=== PATIENT | male | born 1985 | race Two or more races ===

== ENCOUNTER 2017-06-03 10:49 | Inpatient (IN) | payer OTHER ==
[~2017-06-03] VITALS: Ht 182.9 cm; Wt 129.3 kg
--- NOTE | 2017-06-03 11:00 | NUR ---
PATIENT TO ED DT EPIGASTRIC PAIN, 01/06, BURNING SINCE THIS MORNING, PATIENT ALSO REPORTED NAUSEA/ VOMITTING/ DIARHEA. ADMITTED DRINKING 3 BOTTLES OF BEER LAST NIGHT, DENIES DYSURIA NOR HEMATURIA. VSS,.
--- NOTE | 2017-06-03 11:23 | NUR ---
STEPHANIE TANNER AT BEDSIDE
[2017-06-03] MEDS ORDERED: KETOROLAC TROMETHAMINE INJ 30 MG/ML VIAL IM ONE (11:30)
[2017-06-03] MEDS ORDERED: IV NS 0.9% 1,000 ML BAG IV ONE ×2 (11:30→14:00)
[2017-06-03] MEDS ORDERED: ONDANSETRON HCL/PF 4 MG/2 ML VIAL IVP ONE (11:30)
[2017-06-03] MEDS ORDERED: KETOROLAC TROMETHAMINE INJ 30 MG/ML VIAL ONE (11:39)
[2017-06-03] MEDS ORDERED: ONDANSETRON HCL/PF 4 MG/2 ML VIAL ONE (11:39)
[2017-06-03 11:44] LABS: APPEARANCE,URINE Clear (CLEAR); BILIRUBIN,URINE Negative (NEGATIVE); BLOOD, URINE Trace-lysed Ery/uL (NEGATIVE); COLOR,URINE Yellow (YELLOW); KETONES,URINE >=160 (NEGATIVE); LEUKOCYTE ESTERASE ,URINE Negative (NEGATIVE); NITRITE, URINE Negative (NEGATIVE); PH,URINE 5.5 (5.0-8.0); PROTEIN,URINE 30 mg/dl (NEGATIVE); UGLUCOSE 500 MG/DL mg/dL (NEGATIVE); UROBILINOGEN,URINE 0.2 EU/dL (0.2)
[2017-06-03 11:51] LABS: BACTERIA,URINE None seen /HPF (None Seen); SQUAMOUS EPITHELIAL CELL,UR Few /HPF (None Seen); WBC,URINE 0-3 /HPF (0-3)
[2017-06-03 12:14] LABS: HEMATOCRIT 45 % (39-51); MEAN CORPUSCULAR HEMOGLOBIN 32 PG (26.0-33.0); MEAN CORPUSCULAR HGB CONC 38 g/dl (31.0-36.0); MEAN CORPUSCULAR VOLUME 86 fL (80-96); PLATELET COUNT (AUTO) 280 /CMM (150-450); RDW COEFFICIENT OF VARIATION 11.6 (11.5-15.0); RED BLOOD CELL COUNT(AUTO) 5.27 MIL/uL (4.5-6.0); WHITE BLOOD COUNT (AUTO) 11.2 K/uL (4.3-11.0)
[2017-06-03 12:17] LABS: ALBUMIN 3.3 g/dL (3.4-5.0); BILIRUBIN,TOTAL 1.4 mg/dL (0.2-1.0); CALCIUM, SERUM 8.1 mg/dL (8.5-10.1); POTASSIUM 4.1 mmol/L (3.5-5.1); TOTAL PROTEIN, SERUM 7.9 g/dL (6.4-8.2)
[2017-06-03 12:27] LABS: EOSINOPHILS % (AUTO) 0.7 % (0.0-6.0); LYMPHOCYTES % (AUTO) 10.3 % (20.0-44.0); MONOCYTES % (AUTO) 4.5 % (2.0-12.0); NEUTROPHILS % (AUTO) 84.5 % (43.0-81.0)
[2017-06-03 12:28] LABS: EOSINOPHILS # (AUTO) 0.1 /CMM (0.0-0.7); LYMPHOCYTES # (AUTO) 1.2 /CMM (0.8-4.8); MONOCYTES # (AUTO) 0.5 /CMM (0.1-1.30); NEUTROPHILS # (AUTO) 9.7 /CMM (1.8-8.9)
[2017-06-03 12:31] LABS: BILIRUBIN,DIRECT 0.1 mg/dL (0.0-0.2); CREATININE 0.7 mg/dL (0.6-1.3)
[2017-06-03] MEDS ORDERED: INSULIN REGULAR, HUMAN 100 UNIT/ML 10 ML VIAL IV ONE (14:00)
[2017-06-03] MEDS ORDERED: MORPHINE SULFATE INJ 4 MG/ML DISP.SYRIN ONE (14:00)
[2017-06-03] MEDS ORDERED: INSULIN REGULAR, HUMAN 100 UNIT/ML 10 ML VIAL ONE (14:01)
--- NOTE | 2017-06-03 14:08 | NUR ---
PT WAS TAKEN TO CT
[2017-06-03] MEDS ORDERED: MORPHINE SULFATE INJ 4 MG/ML DISP.SYRIN IV ONE (14:30)
[2017-06-03] MEDS ORDERED: POTASSIUM CHLORIDE 20 MEQ TAB.PRT.SR PO ONE ×2 (15:00→15:02)
[2017-06-03] MEDS ORDERED: POTASSIUM CL. PREMIX PERIPHER. 100 ML ONE (15:02)
[2017-06-03] MEDS: POTASSIUM CL. PREMIX PERIPHER. 50 ML IV SCH ×2 (15:09→15:55)
[2017-06-03 15:11] LABS: BAND % (MANUAL) 6 % (0.0-5.0); EOSINOPHILS % (MANUAL) 2 % (0-4); LYMPHOCYTES % (MANUAL) 14 % (16-48); MONOCYTES % (MANUAL) 6 % (0-11.0); NEUTROPHILS % (MANUAL) 72 (42-76)
[2017-06-03 15:26] LABS: ABG BASE EXCESS -5.7 mmol/L; ABG OXYGEN SATURATION 94.4 % (92.0-98.5); ABG PCO2 33.3 mmHg (35.0-45.0); ABG PH 7.364 (7.350-7.450); AaDO2 34.9 mmHg; COHb 1.1 % (0.5-1.5); MetHb 0.2 % (0.0-1.5); O2Hb 93.2 % (94.0-97.0); SITE, ABG Left Radial; VENT MODE, BG ROOM AIR
[2017-06-03 16:44] LABS: CALCIUM, SERUM 7.3 mg/dL (8.5-10.1); CREATININE 0.7 mg/dL (0.6-1.3); MAGNESIUM 1.6 mg/dL (1.8-2.4); PHOSPHORUS 3.2 mg/dL (2.5-4.9); POTASSIUM 4.4 mmol/L (3.5-5.1)
--- NOTE | 2017-06-03 17:12 | NUR ---
CALLED NURSING SUP. FOR TELE BED
[2017-06-03 18:20] VITALS: BP 150/90
--- NOTE | 2017-06-03 18:20 | NUR ---
RN ADMITTING NOTES: REC'D REPORT FROM CELIA HEATING PLANT SUPERINTENDENT. PT TRANSFERRED VIA WHEELCHAIR ACCOMPANIED BY HEATING PLANT SUPERINTENDENT & BAKELITE MOLDER. PT ADMITTED TO ROOM 119/2, MS STATUS PER MARCEL, TOOL MACHINE SHOP SUPERVISOR. ROUTINE ASSESSMENT DONE. PT IS A/OX 4, NOT IN ANY DISTRESS. PT IS AMBULATORY W/ STEADY GAIT. ON ROOM AIR, NOT SOB. HAS R AC G20, SL, FLUSHING WELL, NO S/SX OF INFECTION/INFILTRATION NOTED. SKIN IS INTACT. PT C/O ABDOMINAL PAIN, 11/06, + N/V. PRN MORPHINE & ZOFRAN GIVEN VIA IVP. MARCEL TOOL MACHINE SHOP SUPERVISOR AWARE OF ADMISSION. PER TOOL MACHINE SHOP SUPERVISOR KEEPT NPO FOR NOW, MAY HAVE ICE CHIPS. PT & FAMILY ORIENTED TO ROOM. CALL LIGHT KEPT W/IN REACH. PROVIDED COMFORT & SAFETY MEASURES. BED KEPT LOW & IN LOCKED POS. ENDORSED TO PM RN FOR JOHN.
--- NOTE | 2017-06-03 18:22 | NUR ---
PATIENT TRANSPORTED TO TELE. S
[2017-06-03] MEDS ORDERED: ACETAMINOPHEN 325 MG TABLET PO PRN (18:30)
[2017-06-03] MEDS ORDERED: MAG HYDROX/AL HYDROX/SIMETH 30 ML UDC PO PRN (18:30)
[2017-06-03] MEDS ORDERED: DEXTROSE 50%-WATER 50 ML DISP.SYRIN IV PRN (18:30)
[2017-06-03] MEDS: MORPHINE SULFATE INJ 4 MG/ML DISP.SYRIN IV PRN ×2 (18:52→23:51)
[2017-06-03] MEDS: ONDANSETRON HCL/PF 4 MG/2 ML VIAL IVP PRN (18:57)
[2017-06-03] MEDS: IV NS 0.9% 1,000 ML IV PRN (19:59)
[2017-06-03 20:00] VITALS: BP 145/88
--- NOTE | 2017-06-03 20:00 | NUR ---
RN INITIAL NOTES RECEIVED PT RESTING IN BED.FAMILY AT BED SIDE. PT A & OX4. DENIES PAIN AT THIS TIME. DENIES N&V. STARTED IV FLUID IN PTS R AC. PLAN OF CARE DISCUSSED WITH PT. BED IN LOW LOCKED POSITION AND CALL LIGHT WITHIN REACH. WILL CONT TO MONITOR.
[2017-06-03] MEDS: BLOOD SUGAR DIAGNOSTIC 1 EACH STRIP IN SCH (23:35)
[2017-06-03] MEDS: Magnesium 1GM/D5W 100ML PREMIX 100 ML IV SCH (23:41)
[2017-06-03] MEDS: ENOXAPARIN SODIUM 40 MG/0.4 ML DISP.SYRIN SQ SCH (23:42)
[2017-06-03] MEDS: INSULIN REGULAR, HUMAN 100 UNIT/ML 3 ML VIAL SQ PRN (23:46)
[2017-06-04] MEDS ORDERED: ATEN100T PO (00:42)
[2017-06-04] MEDS ORDERED: GEMF600T3 PO (00:42)
[2017-06-04] MEDS ORDERED: METF10002 PO (00:42)
[2017-06-04] MEDS ORDERED: ATOR10TA PO (00:42)
[2017-06-04] MEDS: Magnesium 1GM/D5W 100ML PREMIX 100 ML IV SCH (01:02)
[2017-06-04 04:00] VITALS: BP 129/89
[2017-06-04] MEDS: MORPHINE SULFATE INJ 4 MG/ML DISP.SYRIN IV PRN ×4 (05:50→21:26)
[2017-06-04] MEDS: BLOOD SUGAR DIAGNOSTIC 1 EACH STRIP IN SCH ×4 (05:50→21:25)
[2017-06-04] MEDS: ONDANSETRON HCL/PF 4 MG/2 ML VIAL IVP PRN ×3 (05:51→21:27)
[2017-06-04] MEDS: IV NS 0.9% 1,000 ML IV PRN ×2 (05:51→21:26)
--- NOTE | 2017-06-04 06:18 | NUR ---
RN INITIAL NOTES PT RESTING IN BED. PT A & OX4. C/O OF ABD PAIN 10/06, PAIN MEDS GIVEN. C/O OF N&V OVER NIGHT. IV FLUID IN R AC @ 150ML/HR. ALL NEEDS ATTENDED AND MEDS GIVEN. BED IN LOW LOCKED POSITION AND CALL LIGHT WITHIN REACH. WILL CONT TO MONITOR.
--- NOTE | 2017-06-04 06:27 | NUR ---
RN CLOSING NOTES PT RESTING IN BED. PT A & OX4. C/O OF ABD PAIN 10/06, PAIN MEDS GIVEN. C/O OF N&V OVER NIGHT. IV FLUID IN R AC @ 150ML/HR. ALL NEEDS ATTENDED AND MEDS GIVEN. BED IN LOW LOCKED POSITION AND CALL LIGHT WITHIN REACH. WILL ENDORSE TO AM RN.
[2017-06-04] MEDS: INSULIN REGULAR, HUMAN 100 UNIT/ML 3 ML VIAL SQ PRN ×3 (06:52→21:29)
[2017-06-04 07:16] LABS: EOSINOPHILS % (AUTO) 0.1 % (0.0-6.0); HEMATOCRIT 48 % (39-51); HEMOGLOBIN 16.5 g/dL (13.5-17.5); LYMPHOCYTES # (AUTO) 0.8 /CMM (0.8-4.8); LYMPHOCYTES % (AUTO) 9.1 % (20.0-44.0); MEAN CORPUSCULAR HEMOGLOBIN 30 PG (26.0-33.0); MEAN CORPUSCULAR HGB CONC 35 g/dl (31.0-36.0); MEAN CORPUSCULAR VOLUME 88 fL (80-96); MONOCYTES # (AUTO) 0.6 /CMM (0.1-1.30); NEUTROPHILS # (AUTO) 7.8 /CMM (1.8-8.9); NEUTROPHILS % (AUTO) 84.8 % (43.0-81.0); PLATELET COUNT (AUTO) 255 /CMM (150-450); RDW COEFFICIENT OF VARIATION 13.3 (11.5-15.0); RED BLOOD CELL COUNT(AUTO) 5.43 MIL/uL (4.5-6.0); WHITE BLOOD COUNT (AUTO) 9.3 K/uL (4.3-11.0)
[2017-06-04 07:34] LABS: CALCIUM, SERUM 7.6 mg/dL (8.5-10.1); CREATININE 0.7 mg/dL (0.6-1.3); MAGNESIUM 1.9 mg/dL (1.8-2.4); PHOSPHORUS 2.4 mg/dL (2.5-4.9)
[2017-06-04 08:00] VITALS: BP 136/92
--- NOTE | 2017-06-04 08:10 | NUR ---
MS/RN OPENING NOTE PATIENT IN BED IN STABLE CONDITION. A/O X 4. NO SIGNS OF ACUTE DISTRESS. NO COMPLAIN OF PAIN OR DISCOMFORT. NPO STATUS SECONDARY TO ACUTE PANCREATITIS. ALL NEEDS ATTENDED TO. CALL LIGHT WITHIN REACH. WILL CONTINUE TO MONITOR TO ENSURE SAFETY.
[2017-06-04] MEDS: PANTOPRAZOLE 40 MG VIAL IV SCH (08:58)
--- NOTE | 2017-06-04 11:27 | NUR ---
MS/RN REGULAR INSULIN HELD NOON BLOOD SUGAR 262, REGULAR INSULIN 6 UNITS NON ADMIN SECONDARY TO PATIENT NPO STATUS DUE TO DIAGNOSIS OF ACUTE PANCREATITIS.
[2017-06-04] MEDS ORDERED: Sodium Phosphate 7.5 MMOL in IV D5W 100 ML IV ONE (14:00)
[2017-06-04 16:00] VITALS: BP 140/87
[2017-06-04] MEDS: ATENOLOL 50 MG TABLET PO SCH (17:00)
[2017-06-04] MEDS: METFORMIN 500 MG TABLET PO SCH (17:09)
[2017-06-04] MEDS: ATORVASTATIN 10 MG TABLET PO SCH (17:09)
[2017-06-04] MEDS: GEMFIBROZIL 600 MG TABLET PO SCH (17:09)
[2017-06-04] MEDS ORDERED: DEXTROSE 50%-WATER 50 ML DISP.SYRIN IV PRN (17:30)
[2017-06-04] MEDS: INSULIN LISPRO/ASPART 100 UNIT/ML CARTRIDGE SQ SCH (17:57)
--- NOTE | 2017-06-04 18:30 | NUR ---
MS/RN CLOSING NOTE PATIENT IN BED IN STABLE CONDITION. A/O X 4. NO SIGNS OF ACUTE DISTRESS. NO COMPLAIN OF PAIN OR DISCOMFORT. ALL NEEDS ATTENDED TO. CALL LIGHT WITHIN REACH. WILL ENDORSE TO NEXT SHIFT FOR CONTINUITY OF CARE.
[2017-06-04 20:00] VITALS: BP 140/90
--- NOTE | 2017-06-04 20:00 | NUR ---
RN INITIAL NOTE RECEIVED PATIENT IN BED IN STABLE CONDITION. A/O X 4. NO SIGNS OF ACUTE DISTRESS. NO COMPLAIN OF PAIN OR DISCOMFORT.IV FLUIDS INFUSING. ALL NEEDS ATTENDED TO. CALL LIGHT WITHIN REACH.BED IN LOW LOCKED POSITION. WILL CONTINUE TO MONITOR.
[2017-06-04] MEDS: ENOXAPARIN SODIUM 40 MG/0.4 ML DISP.SYRIN SQ SCH (21:30)
[2017-06-04] MEDS ORDERED: INSULIN GLARGINE, 100 UNIT/ML CARTRIDGE SQ SCH (22:00)
[2017-06-05 04:00] VITALS: BP 134/89
[2017-06-05 06:26] LABS: BASOPHILS % (AUTO) 0.2 % (0.0-2.0); EOSINOPHILS % (AUTO) 0.1 % (0.0-6.0); HEMATOCRIT 50 % (39-51); LYMPHOCYTES # (AUTO) 0.8 /CMM (0.8-4.8); LYMPHOCYTES % (AUTO) 11.3 % (20.0-44.0); MEAN CORPUSCULAR HEMOGLOBIN 30 PG (26.0-33.0); MEAN CORPUSCULAR HGB CONC 34 g/dl (31.0-36.0); MEAN CORPUSCULAR VOLUME 88 fL (80-96); MONOCYTES # (AUTO) 0.6 /CMM (0.1-1.30); MONOCYTES % (AUTO) 8.5 % (2.0-12.0); NEUTROPHILS # (AUTO) 5.8 /CMM (1.8-8.9); NEUTROPHILS % (AUTO) 79.9 % (43.0-81.0); PLATELET COUNT (AUTO) 239 /CMM (150-450); RDW COEFFICIENT OF VARIATION 13.2 (11.5-15.0); RED BLOOD CELL COUNT(AUTO) 5.64 MIL/uL (4.5-6.0); WHITE BLOOD COUNT (AUTO) 7.3 K/uL (4.3-11.0)
[2017-06-05 06:56] LABS: CALCIUM, SERUM 7.8 mg/dL (8.5-10.1); CREATININE 0.7 mg/dL (0.6-1.3); PHOSPHORUS 1.6 mg/dL (2.5-4.9); POTASSIUM 4.1 mmol/L (3.5-5.1)
--- NOTE | 2017-06-05 07:30 | NUR ---
received pt in bed. alert, awake and oriented. no c/o pain. on ra breath sounds clear. will cont to monitor.
[2017-06-05] MEDS: BLOOD SUGAR DIAGNOSTIC 1 EACH STRIP IN SCH ×4 (07:57→22:09)
[2017-06-05] MEDS: INSULIN LISPRO/ASPART 100 UNIT/ML CARTRIDGE SQ SCH ×2 (08:03→17:54)
[2017-06-05] MEDS: INSULIN REGULAR, HUMAN 100 UNIT/ML 3 ML VIAL SQ PRN ×4 (08:04→22:12)
[2017-06-05] MEDS: PANTOPRAZOLE 40 MG VIAL IV SCH (08:07)
[2017-06-05] MEDS: METFORMIN 500 MG TABLET PO SCH ×2 (08:08→17:21)
[2017-06-05] MEDS: GEMFIBROZIL 600 MG TABLET PO SCH ×2 (08:08→17:21)
[2017-06-05] MEDS: ATENOLOL 50 MG TABLET PO SCH (08:10)
[2017-06-05] MEDS ORDERED: Sodium Phosphate 15 MMOL in IV D5W 250 ML IV ONE (09:00)
--- NOTE | 2017-06-05 12:30 | NUR ---
Tolerating clear liquids, no N/V. Anbulates ad chano. blood sugars monitored. will cont to monitor.
[2017-06-05] MEDS: ATORVASTATIN 10 MG TABLET PO SCH (17:21)
--- NOTE | 2017-06-05 18:58 | NUR ---
Tolerating clear liquids, no n/v. no c/o abd'l pain. blood sugars monitored. will cont to monitor.
--- NOTE | 2017-06-05 19:00 | NUR ---
RN NOTES: RECEIVED AWAKE ON BED . A/OX4, ABLE TO AMBULATE, WITH IVF OF NS AT 100CC/HR ON RAC G#22,ABLE TO MAKE NEEDS KNOWN, FALL,SAFETY AND ASPIRATION PRECAUTION OBSERVED,BED LOW AND LOCKED, CALL LIGHT WITHIN EASY REACH.
[2017-06-05 20:00] VITALS: BP 112/75
[2017-06-05] MEDS: ENOXAPARIN SODIUM 40 MG/0.4 ML DISP.SYRIN SQ SCH (21:30)
[2017-06-05] MEDS: IV NS 0.9% 1,000 ML IV PRN (21:31)
--- NOTE | 2017-06-05 21:31 | NUR ---
RN NOTES; COMPLAINED OF SLIGHT HEADACHE, REQUEST FOR PAIN MEDICATION, PRN MEDS GIVEN AFTER NON PHARMACOLOGIC INTERVENTION RENDERED, DIM LIT THE ROOM AND KEPT IN COMFORTABLE POSITION, CALL LIGHT WITHIN EASY REACH.
--- NOTE | 2017-06-05 21:35 | NUR ---
RN NOTES: IVF FINISHED, STARTED WITH NEW BAG REGULATED AT 100 ML/HR VIA INFUSION PUMP.
[2017-06-05] MEDS ORDERED: INSULIN GLARGINE, 100 UNIT/ML CARTRIDGE SQ SCH (22:00)
--- NOTE | 2017-06-05 22:21 | NUR ---
RN NOTES: BLOOD SUGAR CHECKED AT 2200-254, INSULIN GIVEN PER SCALE,ALSO LANTUS DOSE GIVEN, PATIENT IS DRINKING FLUIDS ADEQUATELY, WILL KEEP MONITORING FOR SIGN OF HYPO/HYPERGLYCEMIA.
--- NOTE | 2017-06-06 03:20 | NUR ---
RN NOTES: ABLE TO SLEEP AND REST FROM 230PM,IN DEEP SLEEP, KEPT CALL LIGHT WITHIN EASY REACH, VISUAL CHECKED AT FREQUENT INTERVALS.
[2017-06-06 04:00] VITALS: BP 114/77
--- NOTE | 2017-06-06 06:24 | NUR ---
RN NOTES: PATIENT ABLE TO SLEEP AND REST, NO PAIN OR DISCOMFORT, NO N/V ON THE ENTIRE SHIFT, NO ABDOMINAL PAIN,BLOOD SUGAR-183, ENDORSED FOR CONTINUITY OF CARE.
[2017-06-06 06:30] LABS: BASOPHILS % (AUTO) 0.1 % (0.0-2.0); EOSINOPHILS # (AUTO) 0.1 /CMM (0.0-0.7); EOSINOPHILS % (AUTO) 1.3 % (0.0-6.0); HEMATOCRIT 44 % (39-51); HEMOGLOBIN 14.9 g/dL (13.5-17.5); LYMPHOCYTES # (AUTO) 1.1 /CMM (0.8-4.8); LYMPHOCYTES % (AUTO) 13.1 % (20.0-44.0); MEAN CORPUSCULAR HEMOGLOBIN 30 PG (26.0-33.0); MEAN CORPUSCULAR HGB CONC 34 g/dl (31.0-36.0); MEAN CORPUSCULAR VOLUME 89 fL (80-96); MONOCYTES # (AUTO) 0.9 /CMM (0.1-1.30); MONOCYTES % (AUTO) 10.3 % (2.0-12.0); NEUTROPHILS # (AUTO) 6.2 /CMM (1.8-8.9); NEUTROPHILS % (AUTO) 75.2 % (43.0-81.0); PLATELET COUNT (AUTO) 222 /CMM (150-450); RDW COEFFICIENT OF VARIATION 13.8 (11.5-15.0); RED BLOOD CELL COUNT(AUTO) 4.97 MIL/uL (4.5-6.0); WHITE BLOOD COUNT (AUTO) 8.3 K/uL (4.3-11.0)
[2017-06-06 06:51] LABS: CALCIUM, SERUM 7.9 mg/dL (8.5-10.1); CREATININE 0.7 mg/dL (0.6-1.3); POTASSIUM 3.6 mmol/L (3.5-5.1)
[2017-06-06] MEDS: BLOOD SUGAR DIAGNOSTIC 1 EACH STRIP IN SCH ×2 (07:21→12:51)
[2017-06-06] MEDS: INSULIN REGULAR, HUMAN 100 UNIT/ML 3 ML VIAL SQ PRN (07:26)
--- NOTE | 2017-06-06 07:27 | NUR ---
RN NOTES: INSULIN 3 UNITS GIVEN.
--- NOTE | 2017-06-06 07:30 | NUR ---
RECEIVED PT. ALERT AND ORIENTED X4,IV INFUSING,NO COMPLAINTS OFFERED..
--- NOTE | 2017-06-06 07:40 | NUR ---
IV DISCONTINUED ORDERED.HEP LOCKED.REMAINS ON CLEAR LIQ. DIET.
[2017-06-06 08:00] VITALS: BP 115/78
[2017-06-06] MEDS ORDERED: K PHOS NEUTRAL 250 MG TABLET PO ONE (08:00)
[2017-06-06] MEDS: PANTOPRAZOLE 40 MG VIAL IV SCH (08:57)
[2017-06-06] MEDS: GEMFIBROZIL 600 MG TABLET PO SCH (08:57)
[2017-06-06] MEDS: METFORMIN 500 MG TABLET PO SCH (08:58)
[2017-06-06] MEDS: ATENOLOL 50 MG TABLET PO SCH (09:00)
[2017-06-06] MEDS: INSULIN LISPRO/ASPART 100 UNIT/ML CARTRIDGE SQ SCH (09:02)
[2017-06-06 12:00] VITALS: BP 118/80
[2017-06-06] MEDS ORDERED: HYDR-552 PO (12:21)
[2017-06-06] MEDS ORDERED: ONDA4TAB5 PO (12:23)
--- NOTE | 2017-06-06 13:05 | NUR ---
MARCEL MCCORMICK COMPUTER APPLICATIONS ENGINEER IN DISCH. ORDER GIVEN.HEP LOCK OUT. BELONGING SHEET SIGNED. ALL PAPERS SIGNED.RXS FAXED TO PT,S PHARM.TAKEN VIA W/C TO KAYLENE.VERB. UNDERSTANDING OF ALL INSTRUCTIONS.
== END 2017-06-06 13:09 | disposition home or self-care (01) | DRG 439 ==
LOC: ER 10:50 → TELE1 17:46 → MEDSG1 23:42
PROVIDERS: ADMIT Nurse Practitioner Acute Care; ATTEND Nurse Practitioner Acute Care
DX: K85.90 Acute pancreatitis without necrosis or infection, unspecified (principal); E87.1 Hypo-osmolality and hyponatremia; E11.65 Type 2 diabetes mellitus with hyperglycemia; E88.81 Metabolic syndrome and other insulin resistance; K76.0 Fatty (change of) liver, not elsewhere classified; E83.42 Hypomagnesemia; E78.5 Hyperlipidemia, unspecified; E66.01 Morbid (severe) obesity due to excess calories; E78.1 Pure hyperglyceridemia; E83.39 Other disorders of phosphorus metabolism; I10 Essential (primary) hypertension; F10.10 Alcohol abuse, uncomplicated; R74.0 Nonspecific elevation of levels of transaminase and lactic acid dehydrogenase [LDH]; Z68.38 Body mass index [BMI] 38.0-38.9, adult; E86.1 Hypovolemia; Z79.84 Long term (current) use of oral hypoglycemic drugs; E66.9 Obesity, unspecified; Z71.3 Dietary counseling and surveillance
CPT/HCPCS: 36415; 36600; 76705-TC; 80048-TC; 80061-TC; 80076-TC; 81000-TC; 82010-TC; 82962-TC; 83690-TC; 83735-TC; 84100-TC; 85025-TC; 87081-TC; A4349; A4606; A9563; C9113; J1650; J1815; J1885; J2270; J2405; J3475; J3480; J7030; J7060; Z7610